=== PATIENT | female | born 2000 | race African-American/Black ===

== ENCOUNTER 2022-06-16 10:53 | Emergency (ER) | payer SELFPAY ==
[~2022-06-16] VITALS: Ht 172.7 cm; Wt 86.4 kg
[2022-06-16 11:05] VITALS: BP 119/80
[2022-06-16] MEDS: TETanus/Pertussis (Acell)/Diphther VAC/PF (Tdap-Adult) 0.5ml syringe IMVAC ONE (12:12)
[2022-06-16] MEDS: LIDOcaine 1% 30ml preserv. free vial IJ ONE (12:24)
== END 2022-06-16 13:02 | disposition home or self-care (01) ==
LOC: ER 10:54
DX: S61.214A Laceration without foreign body of right ring finger without damage to nail, initial encounter (principal); Z20.3 Contact with and (suspected) exposure to rabies; W45.8XXA Other foreign body or object entering through skin, initial encounter; Y93.89 Activity, other specified; Y92.89 Other specified places as the place of occurrence of the external cause; Y99.8 Other external cause status
CPT/HCPCS: 12001; 90471; 90715; 99283; J7030; A6449